=== PATIENT | female | born 1960 | race Caucasian/White ===

== ENCOUNTER 2017-06-13 17:59 | Inpatient (IN) | payer OTHER ==
[~2017-06-13] VITALS: Ht 167.6 cm; Wt 77.1 kg
--- NOTE | ~2017-06-13 | HP ---
History And Physical [place] [address] [place] [place]. [address] NAME: MONAE MG : 60 STATUS : ADM IN [facility]#: [id number] AGE: 56 ADM/REG DATE : 06/13/17 MR#: [id number] REPORT SERV DATE: 06/14/17 DICTATED BY: Calderon CARRIZALES DATE: 06/13/17 REPORT STATUS : Draft TRANSCRIBED BY: MODL DATE: 06/13/17 DATE OF ADMISSION: 06/13/2017 HISTORY OF PRESENT ILLNESS: A 56-year-old female with history of mechanical aortic valve replacement as well as history of kidney pancreas transplant. Transplant was done at [place] in 1997. Valve replacement was done in 2004 in [place]. She is currently followed by supervisor plastics in [place], [place]. She presents to [facility] with two days of fatigue, malaise, and suprapubic abdominal discomfort. WBC count is elevated at 14.2. Urinalysis consistent with infection. CT of the abdomen and pelvis showed a 2.3 x 3.3 x 1.8 fluid collection around the transplanted kidney in the pelvis of uncertain etiology. Her baseline creatinine is 1.7, [facility], the creatinine is 2.27. The patient will now be admitted for further evaluation and treatment. PAST MEDICAL HISTORY: Significant for the above-mentioned kidney and pancreas transplant done in 1997, aortic valve replacement in 2004, hypertension, hyperlipidemia. SOCIAL HISTORY: Good family support. No alcohol, tobacco, or drugs. REVIEW OF SYSTEMS: As per HPI. She denies chest pain or shortness of breath. No syncope or presyncope. No high fever. No shaking chills. No melena, hematochezia, hemoptysis, or hematuria. Remainder of 10-point review of systems negative. FAMILY HISTORY: Positive for heart disease. PHYSICAL EXAMINATION: VITAL SIGNS: Temperature 97.1, heart rate 88, respirations 15, blood pressure 122/54. GENERAL: It is a well-developed, well-nourished, female patient, conversant, in no distress. HEENT: Pupils are equal, round, and reactive to light. Extraocular muscles are intact. Oropharynx is clear. NECK: Without JVD, thyromegaly, or bruit. LUNGS: Clear. HEART: Regular without murmur rub or gallop. ABDOMEN: Soft, positive bowel sounds. Tender in the lower abdomen. No rebound or guarding. EXTREMITIES: No edema. Pulses are +2. SKIN: Without rash or ecchymotic area. JOINTS: Without synovitis, effusion, or deformity. NEURO: Cranial nerves grossly intact. Motor exam is nonfocal. Sensation unremarkable. Gait was not assessed. LABORATORY DATA: White count is 14.2, hemoglobin 11.1, platelets 451. Sodium 141, potassium 4.8, chloride 106, bicarb 26, BUN 31, creatinine 2.27. UA with cloudy urine, 33 white cells, and moderate leukocyte esterase. History And Physical [address] [address] NAME: MONAE MG : 60 STATUS : ADM IN [facility]#: [id number] AGE: 56 ADM/REG DATE : 06/13/17 MR#: [id number] REPORT SERV DATE: 06/14/17 DICTATED BY: Calderon CARRIZALES DATE: 06/13/17 REPORT STATUS : Draft TRANSCRIBED BY: SANTA DATE: 06/13/17 IMPRESSION: A 56-year-old female with acute kidney injury and infection with history of renal/pancreas transplant. PLAN: Admit. Non-monitored bed. Attending Dr. Carrizales consult to Nephrology associates. Electrolyte replacement guidelines. Full code status. Routine vitals. Diet as tolerated. Repeat CBC and renal function panel in a.m. Check ultrasound of the pelvis to evaluate fluid collection around transplanted kidney. Hydrate with saline at 150 an hour. DVT prophylaxis with heparin 5000 units q.8 hours. Reasonable pain and nausea control will be offered. Antimicrobial therapy will be ceftriaxone 1 g q.24 h. With regard to her home medications, we will hold home Avapro given acute kidney injury. Continue other medicines particularly her antirejection medicines as well as her Coumadin. The INR was checked. We will order that to be done on blood in the ER to make sure her INR is therapeutic. JL/SANTA Calderon Carrizales M.D. / [id number] CC: LELA KHAN
--- NOTE | ~2017-06-13 | IDS ---
Interim Discharge Summary [facility] [address] [place]. [address] NAME: MONAE MG : 60 STATUS : ADM IN [facility]#: [id number] AGE: 56 ADM/REG DATE : 06/13/17 MR#: [id number] REPORT SERV DATE: 06/21/17 DICTATED BY: YENI MG DATE: 06/21/17 REPORT STATUS : Draft TRANSCRIBED BY: MODL DATE: 06/21/17 ADMISSION DATE: 06/13/2017 DISCHARGE DATE: INTERIM DISCHARGE SUMMARY WELL PROGRESS NOTE SUBJECTIVE: The patient feels better. No events. OBJECTIVE: VITAL SIGNS: 147/69, 94% on room air, 18 respirations, 79 pulse, 99 temperature, and afebrile. GENERAL: No acute distress. HEENT: PERRLA. No scleral icterus. CARDIOVASCULAR: Regular rate and rhythm. No murmur. The patient does have of systolic aortic murmur consistent with mechanical valve. RESPIRATORY: Decreased breath sounds, bibasilar. No wheezes. No crackles. ABDOMEN: Nontender, nondistended. Positive bowel sounds. NEURO: GCS 15. A and O x4/4. PSYCH: Normal affect and mood. LABORATORY DATA: Today, she has a white count 7.3 from 14,000 back on 06/18/2017, hemoglobin 7.7 from 06/18/2017 from 9.6, platelets are 273,000. Her PTT is therapeutic. INR is still low at 1.3. Sodium 138, 3.6 potassium, 104 chloride, 27 bicarb, 23 BUN. 1.77 creatinine from 1.8 yesterday from 1.89 prior, 1.71 prior to that, for which she has gone from 1.5 to 1.7. Sees product manager financial services in [place]. Albumin 2.0. Micropath original culture IR drainage of the most anterior abscess is enterococcus faecalis and E coli, both of which were sensitive to Cipro versus Levaquin. The Enterococcus was pansensitive and E coli was pansensitive. Subsequent culture on 06/18/2017, , moderate-growth E. coli, abundant-growth Enterococcus; same microorganism sensitivity. There was no growth to date. Repeat chest x-ray yesterday was improved. Vitals today show she is 94% on room air from 97% on 2 L. Some mild alveolar infiltration. Trace pleural effusions possibly. She had transvaginal ultrasound, which had a complex mass adjacent to the posterior uterine fundus possibly representing an abscess. She also had a renal ultrasound. No hydronephrosis or perinephric collection surrounding left iliac fossa renal allograft. She had two separate Intervention Radiology drainage procedures, second of which had showed successful placement of two additional drains, one superior fluid collection, one inferior collection. One in the anterior more collection is unchanged in position. Successful placement of two additional drains as well as original CT of the abdomen and pelvis just showed a small ovoid intermediate attenuation collection via the left pelvic kidney of 2.3 x 3.8 x 1.8 cm. Small bubble of gas, likely abscess. Subtle stranding in adjacent segment of sigmoid colon, stranding in adjacent left adnexa. Probable fibroid uterus. INTERIM DISCHARGE SUMMARY: This is an unfortunate 56-year-old female, who has a history of obesity as well as history of diabetes, hypertension, and hyperlipidemia. She, at one time, had end-stage renal disease, and was fortunate to receive a kidney-pancreas Interim Discharge Summary [address] [address] NAME: CAROL MGSHERLYN JOHN : 60 STATUS : ADM IN PAT#: [id number] AGE: 56 ADM/REG DATE : 06/13/17 MR#: [id number] REPORT SERV DATE: 06/21/17 DICTATED BY: YENI MG DATE: 06/21/17 REPORT STATUS : Draft TRANSCRIBED BY: MODMorgan DATE: 06/21/17 transplant at [place] 1997, for which she is on cyclosporine, mycophenolate mofetil, prednisone 7.5 p.o. daily. She also has a history of mechanical aortic valve replaced in 2016, for which she needs to be bridged with heparin anticoagulation, goal 2 to 3 INR. History of frequent UTIs. Came in with shooting abdominal pain while she was on immunosuppressive medication. Fever 103. Someone prescribed her clindamycin. Had outpatient treatment failure. Came in with a collection of 3.3 x 1.8 cm around the left pelvic transplanted kidney. Further, Intervention Radiology had elucidated actually two other abscesses and all three of which are now being drained. Current output is very minimal. Growths are relatively pansensitive E. coli, Enterococcus. She is on Zosyn. Had Infectious Disease get involved regarding her immunocompromised state. Renal is involved regarding her transplanted kidney. Creatinine is improving, near baseline of 1.5 to 1.7 with 500 mL output questionable. Hopefully, the patient, speaking with Dr. Francis today, likely will need to continue the IV Zosyn at home for duration of therapy per Infectious Disease. The patient does have a titanium fallopian tube insert. The patient should likely have that be removed by an Two Needle Machine Operator as an outpatient. She will need to ensure that her mechanical aortic valve continues with bridge of heparin. Could consider if possible. She does go home on Lovenox, as that cannot be subtherapeutic. See rest of my orders. All questions were answered. Took well over 30 minutes to do. WST/MODL Yeni Mg DO / [id number] CC: DO LELA Lee
--- NOTE | ~2017-06-13 | CN ---
Consultation Report [facility] [address] [place]. [address] NAME: MONAE MG : 60 STATUS : ADM IN PAT#: [id number] AGE: 56 ADM/REG DATE : 06/13/17 MR#: [id number] REPORT SERV DATE: 06/14/17 DICTATED BY: DATE: REPORT STATUS : Draft TRANSCRIBED BY: MODL DATE: 06/14/17 CONSULT DATE OF CONSULTATION: REASON FOR CONSULTATION: Renal transplant, acute kidney injury. HISTORY OF PRESENT ILLNESS: Ms. Mg is a 56-year-old white female with a history of end stage renal disease secondary to diabetes. She underwent kidney pancreas transplant at [place] in 1997. She is followed by in the [facility] with a baseline creatinine of 1.5 to 1.7. She is in the hospital at this time as she developed abdominal pain to the left lower abdomen. She described it as sharp, starting two weeks ago, went to PCP, was given clindamycin. She took it for a week, however she developed sores in her mouth and some stomach upset, so had to stop it, and then in the last 24 to 48 hours prior to presentation developed fevers, chills, fatigue, malaise, and continued suprapubic discomfort and went to the emergency room here at [facility], was found by CT to have questionable abscess in the left pelvic region that did not communicate with intestines. [place] [address]. Her creatinine was elevated at 2.2 given all this, and urine was consistent with findings of UTI, therefore she was admitted for further evaluation, worsening her on day two of admission and her creatinine has gone from 2.27 to 1.52. She denies any dysuria or hematuria recently and states that this is unusual for her to have infection without symptoms that she does have a history of recurrent UTIs. PAST MEDICAL HISTORY: End-stage renal disease secondary to diabetes with kidney-pancreas transplant in 1997 at [place]. She has a mechanical aortic valve replacement done at [facility] in [place]. Hypertension, hyperlipidemia, recurrent UTIs. FAMILY MEDICAL HISTORY: Negative for any end-stage renal disease. ALLERGIES: NO TRUE ALLERGIES, BUT IS INTOLERANT TO MULTIPLE ANTIBIOTICS. SHE HAS MULTIPLE GI SYMPTOMS. MEDICATIONS: She is maintained with her CellCept, prednisone, and cyclosporine. She is on aspirin, Lipitor, currently receiving Rocephin, Protonix, heparin, and Coumadin. She is receiving normal saline at 150 as well. REVIEW OF SYSTEMS: 12-point review of systems obtained and negative with the exception that in the HPI. PHYSICAL EXAMINATION: VITAL SIGNS: Temp of 101.7, blood pressure 165/85, pulse 102, respiratory rate 16, O2 saturation is 92%. GENERAL: This is a pleasant, ill-appearing white female. She is awake, alert, oriented, Consultation Report [place] [address] [place]. [address] NAME: MONAE MG : 60 STATUS : ADM IN [facility]#: [id number] AGE: 56 ADM/REG DATE : 06/13/17 MR#: [id number] REPORT SERV DATE: 06/14/17 DICTATED BY: DATE: REPORT STATUS : Draft TRANSCRIBED BY: MODL DATE: 06/14/17 chilling during my visit. HEENT: Normocephalic, atraumatic. Conjunctivae clear. Sclerae anicteric. Pupils are equal and round. Oral mucosa is dry. NECK: Supple. Carotids are brisk. Neck veins flat. No lymphadenopathy. LUNGS: Her respirations are even and unlabored. Breath sounds clear to auscultation. HEART: Rate is regular. She does have a systolic murmur. No rub or gallop. ABDOMEN: Soft with tenderness to the left pelvic region and suprapubic region. Palpable transplanted kidney in the left lower quadrant. No CVA tenderness. BACK: Within normal limits. EXTREMITIES: No edema, cyanosis, clubbing. SKIN: Warm, dry, and intact. No unusual rash or skin lesions. NEURO: No focal deficits. Mood and affect, pleasant and appropriate. PERTINENT LABS AND X-RAYS: Urine cultures and blood cultures are still pending. Chest x- ray, negative. Sodium 141, potassium 3.9, chloride 108, CO2 of 25, BUN 24, creatinine 1.5, calcium 8.7, phosphorus 2.7, albumin of 2.5. WBCs 69435, H and H 10 and 31, platelets 373,000. CT of the abdomen with collection medial to the left pelvic kidney which is small with a gas bubbles, question of small abscess collection, there is some stranding to the sigmoid colon. No thickening or suggestion of diverticulitis, and the transplant was unremarkable. IMPRESSION: 1. Acute kidney injury secondary to dehydration. Had nausea, vomiting prior to admission. Chronic kidney disease with kidney pancreas transplant in 1997 in [place], baseline creatinine 1.5 to 1.8. 2. Abdominal pain x2 weeks with one week of clindamycin. 3. Question of left pelvic abscess. 4. Recurrent urinary tract infections with current urinary tract infection. 5. Hypertension. 6. Diabetes. 7. History of mechanical aortic valve. PLAN: Creatinine at baseline. We will continue with IV fluids for now. Continue current immune suppression. She is having further evaluation of possible abscess with ultrasound today. She is on antibiotics. We will follow up on cultures. Follow labs and I's and O's with you. We can get in touch with her primary home energy rater, if needed, but at this time her kidney function is stable and we will just follow. ISAURO/SANTA EARL Jang Consultation Report [address] [place]. [address] NAME: MONAE MG : 60 STATUS : ADM IN [facility]#: [id number] AGE: 56 ADM/REG DATE : 06/13/17 MR#: [id number] REPORT SERV DATE: 06/14/17 DICTATED BY: DATE: REPORT STATUS : Draft TRANSCRIBED BY: PRASADL DATE: 06/14/17 / [id number] CC: Crystal Weston
--- NOTE | ~2017-06-13 | CN ---
Consultation Report [facility] [address] [place]. [address] NAME: MONAE MG : 60 STATUS : ADM IN PAT#: [id number] AGE: 56 ADM/REG DATE : 06/13/17 MR#: [id number] REPORT SERV DATE: 06/16/17 DICTATED BY: MEDARDO FRANCIS DATE: 06/16/17 REPORT STATUS : Draft TRANSCRIBED BY: MODL DATE: 06/16/17 INFECTIOUS DISEASE CONSULTATION DATE OF CONSULTATION: 06/16/2017 REASON CONSULTATION: Abscess with sepsis, uncertain etiology. HISTORY OF PRESENT ILLNESS: This is a 56-year-old female with a history of end-stage renal disease, secondary to diabetes, for which she underwent a kidney pancreas transplant at [place] in 1997. She also has a history of mechanical aortic valve replacement in 2005, along with a history of recurrent UTIs. She was in her baseline state of health until two weeks ago when she developed "shooting abdominal pain" in her lower abdomen, more on the left side with associated nausea and then fevers. She then developed some vomiting and mild diarrhea. Her fever got as high as 103. She did not have dysuria or urinary frequency. The patient was seen in an outpatient office and started on clindamycin for possible colitis and took this for seven days, with her last dose being June 11. However, she did not improve at all and for all these reasons was seen in the emergency department on the evening of 06/13/2017 and [place] [address] and fevers as high as 101.7 over the first 24 hours and an increase in her baseline creatinine. Workup in the ER included a CT scan of the abdomen and pelvis without IV contrast. This study is reviewed and was interpreted as showing a small ovoid intermediate attenuation collection medial to the left pelvic transplant kidney measuring 2.3 x 3.3 x 1.8 cm and containing a small bubble of gas suggesting an abscess. There was some subtle stranding to an adjacent segment of sigmoid colon and to the adjacent left adnexa, but no significant thickening of the sigmoid colon. Diverticulosis was seen without evidence of diverticulitis. The patient's urinalysis initially showed moderate leukocyte esterase and 33 white blood cells. After blood urine cultures were obtained, she was started on ceftriaxone. Blood cultures have remained negative. The urine culture has grown greater than 100,000 colonies of E. coli, which is sensitive to ceftriaxone. She has had E. coli UTIs before. Repeat urinalysis however on 06/14/2017 was negative. Despite the antibiotics, the patient has continued to have high fevers up to 102.1 yesterday, 101.5 this morning, and a persistent mild leukocytosis, and no improvement in her pain or nausea. Additional diagnostic studies have included renal ultrasound yesterday showing no hydronephrosis or perinephric collection surrounding the left iliac fossa renal allograft and a pelvic ultrasound yesterday showing a complex mass adjacent to the posterior uterine fundus possibly representing an abscess. A CT-guided drainage of this abscess has been ordered, but was delayed yesterday secondary to INR of 1.8. Today her INR is 1.3 and she is scheduled for drainage procedure. The patient denies other recent infection issues. She specifically denies any skin or soft tissue infections. She does give a history of perianal fissure with episodic bleeding, but no other significant colon abnormalities and did have a colonoscopy two years ago apparently. She denies any history of gynecologic infections. PAST MEDICAL HISTORY: In addition to the problems outlined above includes hypertension, hyperlipidemia. Consultation Report [place] [id number] [facility] [place]. [address] NAME: MONAE MG : 60 STATUS : ADM IN [facility]#: [id number] AGE: 56 ADM/REG DATE : 06/13/17 MR#: [id number] REPORT SERV DATE: 06/16/17 DICTATED BY: MEDARDO FRANCIS DATE: 06/16/17 REPORT STATUS : Draft TRANSCRIBED BY: SANTA DATE: 06/16/17 ALLERGIES: CIPRO CAUSES NAUSEA DOES AMOXICILLIN. PRESENT MEDICATIONS: In addition to ceftriaxone include aspirin, Lipitor, cyclosporine, CellCept, prednisone 7.5 mg daily, Coumadin, Ambien, Protonix, Imdur. SOCIAL HISTORY: She lives with her and is here in the room with her along with her sister. Nonsmoker, nondrinker. No unusual dietary habits. FAMILY HISTORY: Notable for heart disease. REVIEW OF SYSTEMS: As outlined above. In addition, no headache, chest pain, shortness of breath, hematuria, joint issues. The rest of the 10-point review of systems is also negative except as outlined above. PHYSICAL EXAMINATION: VITAL SIGNS: The patient weighs 77 kg. Fevers as mentioned above. Blood pressure 160/80, pulse 103, respiratory rate 16. GENERAL: She is oriented, awake. She looks ill, complaining of nausea, but not toxic. HEENT: Head and neck exam, extraocular movements intact. The oral cavity shows no thrush or ulcers. NECK: Supple. No adenopathy. LUNGS: Clear to auscultation anteriorly. CARDIAC: Shows an irregularly irregular rhythm. Normal S1, S2 with a 2/6 systolic murmur along the left sternal border. ABDOMEN: Bowel sounds are present. The abdomen is not significantly distended. She does have mild tenderness to palpation in the left lower quadrant. EXTREMITIES: Show no significant edema. She has a peripheral IV without phlebitis. SKIN: Without rash. NEUROLOGIC: Grossly nonfocal. LABORATORY STUDIES: White blood cell count yesterday 12.1, hemoglobin 9.9, platelets 368. Creatinine today is 1.37, which appears to be around her baseline. Albumin 2.2. Liver function tests are normal. Microbiology studies are as outlined above. RADIOLOGIC STUDIES: As outlined above. IMPRESSION: Sepsis secondary to what appears to be a pelvic abscess. The etiology of this abscess is not clear. It does not have a classic appearance of a perinephric abscess and the possibility of a GI or gynecologic etiology must be considered. Her persistent fevers may be secondary just to the need for drainage of this, and/or she could have ceftriaxone resistant pathogens involved. PLAN: Consultation Report [address] [place]. [address] NAME: MONAE MG : 60 STATUS : ADM IN [facility]#: [id number] AGE: 56 ADM/REG DATE : 06/13/17 MR#: [id number] REPORT SERV DATE: 06/16/17 DICTATED BY: MEDARDO FRANCIS DATE: 06/16/17 REPORT STATUS : Draft TRANSCRIBED BY: SANTA DATE: 06/16/17 1. We will change antibiotics to Zosyn. 2. Await results of today's CT-guided drainage and will follow closely with you. DYAN/SANTA Medardo Francis M.D. / [id number] CC: DO Robin Lee
--- NOTE | ~2017-06-13 | DS ---
Discharge Summary [address] [id number] [place]. [address] NAME: MONAE MG : 60 STATUS : DIS IN PAT#: [id number] AGE: 56 ADM/REG DATE : 06/13/17 MR#: [id number] REPORT SERV DATE: 06/26/17 DICTATED BY: AMISH CORTEZ DATE: 06/25/17 REPORT STATUS : Draft TRANSCRIBED BY: MODL DATE: 06/25/17 ADMISSION DATE: 06/13/2017 DISCHARGE DATE: 06/25/2017 DISCHARGE DIAGNOSES: 1. Multiple intraabdominal abscesses status post drainage and continuation of IV antibiotics with abscesses cultures positive for E coli and enterococcus. 2. Acute kidney injury on chronic kidney disease on the setting of history of kidney and pancreatic transplant. 3. Chronic immunosuppression. 4. Hypertension. 5. Mechanical aortic valve replacement. Goal INR 1.5-2.5. HOSPITAL COURSE: Please refer to the interim discharge summary dictated by Dr. Mg dated 06/21/2017 for the patient's full hospital course. Of note, my care for this patient began on 06/22/2017 and this discharge summary covers at time. Under my care, starting 06/22/2017, the patient continued on IV Zosyn with Infectious Disease following along and had a PICC line placed in anticipation of discharge home to complete a course of broad-spectrum antibiotics that will be completed on 06/29/2017 per ID's recommendations. Since my arrival, she has remained stable with no sign of systemic infection, lack of leukocytosis, and has been afebrile and is therefore stable for discharge home. From that standpoint, she did have drains placed for her and multiple intraabdominal abscesses. Those have now been removed and the plan will be for her to be discharged today with continuation of Zosyn and weekly labs per Infectious Disease. For her acute kidney injury in the setting of chronic kidney disease with a history of renal and pancreatic transplant, on chronic immunosuppression. Nephrology was consulted during this admission for the patient. She was continued on her chronic immunosuppression. She was diuresed during this admission during my time here per Nephrology and has had a slight increase in her creatinine from 1.95 to now 2.04 on the date of discharge. The patient feels well and Nephrology feels that the patient is stable for discharge home from a Nephrology standpoint. She is to call her primary senior designer in [place] on discharge and set up followup within a week or so for further management. The patient was found to be persistently hypertensive during her admission and therefore was started on several new medications. She will be discharged home with 30 mg of Imdur daily as well as carvedilol 12.5 b.i.d. as well as additional 5 mg of amlodipine on the day of discharge given persistent systolic blood pressures from the 160s, sometimes up to the 200s. Again, she will follow up with her primary senior designer and her blood pressure regimen can be tailored further at that time. For her mechanical aortic valve replacement, her goal INR is 1.5-2.5 based on the valve that she has. Pharmacy followed along during her admission and made recommendations regarding her anticoagulation. On the day of discharge, her INR is therapeutic and therefore she is ready for discharge home. Pharmacy has recommended that we continue with her home regimen Discharge Summary [address] [place]. [address] NAME: MONAE MG : 60 STATUS : DIS IN PAT#: [id number] AGE: 56 ADM/REG DATE : 06/13/17 MR#: [id number] REPORT SERV DATE: 06/26/17 DICTATED BY: AMISH CORTEZ DATE: 06/25/17 REPORT STATUS : Draft TRANSCRIBED BY: SANTA DATE: 06/25/17 and she will follow up with an INR check in the coming week. Of note, regarding the patient's multiple intraabdominal infections, the patient does have a history of titanium fallopian tube device, and given her multiple infections in the abdomen, it is reasonable to consider removal of this as it is a potential nidus for infection. Therefore, she has followup scheduled with her knife setter in three or four weeks following discharge for consideration of removal of this titanium tube. DISCHARGE MEDICATIONS: 81 mg of p.o. aspirin daily; 20 mg of Lipitor nightly; 12.5 mg of carvedilol p.o. twice per day; 50 mg of cyclosporine p.o. at bedtime; 100 mg of cyclosporine p.o. every morning; 30 mg of Imdur p.o. daily; 500 mg of CellCept p.o. twice per day; 20 mg of omeprazole p.o. twice per day; Zosyn 3.375 extended infusion q.8 hours through 06/29/2017; warfarin 5 mg Mondays and Fridays with 7.5 mg on Wednesday, Wednesday, Wednesday, , and Wednesday; Ambien 2.5 mg p.o. at bedtime; prednisone 7.5 mg p.o. daily; Tylenol 500 mg p.o. daily p.r.n. for fever; lidocaine cream topically for back pain; and 5 mg amlodipine p.o. daily. FOLLOWUP: As mentioned prior, the patient will call and schedule follow up with Nephrology within the next week. At which time, her blood pressure regimen can be reassessed as well as her renal function. Per Nephrology, she is stable for discharge home with her creatinine of 2.04. As above, she will continue with her IV antibiotics through 06/29/2017. Again, she has followup scheduled with Gynecology in three to four weeks for consideration of fallopian titanium tube removal given the possibility that this could be a nidus for infection given her multiple intraabdominal infections. Approximately 45 minutes were spent coordinating the discharge of this patient. DAYDAY/SANTA Amish Cortez MD / [id number] CC: MD ERIN Mcdermott PAUL E
[2017-06-13 20:17] LABS: BASOPHILS 0.1 %; BASOPHILS ABSOLUTE 0.02 10/3/uL (0.0-0.16); EOSINOPHILS 0.1 %; EOSINOPHILS ABSOLUTE 0.01 10/3/uL (0.0-0.53); HEMATOCRIT 35.7 % (36.0-48.0); HEMOGLOBIN 11.1 g/dL (12.0-16.0); IMMATURE GRANULOCYTES 0.7 %; LYMPHOCYTES 3.7 %; LYMPHOCYTES ABSOLUTE 0.53 10/3/uL (0.67-4.30); MEAN CORPUS HGB CONC 31.1 g/dL (32.0-36.0); MEAN CORPUSCULAR HEMOGLOB 27.4 pg (26.0-34.0); MEAN CORPUSCULAR VOLUME 88.1 fL (80-100); MEAN PLATELET VOLUME 8.4 fL (9.2-13.0); MONOCYTES 7.3 %; MONOCYTES ABSOLUTE 1.03 10/3/uL (0.21-1.20); NEUTROPHILS 88.1 %; PLATELET COUNT 451 10/3/uL (150-400); RBC DISTRIBUTION WIDTH 13.7 % (12.0-16.0); RED CELL COUNT 4.05 10/6/uL (4.0-5.6); WHITE BLOOD CELLS 14.2 10/3/uL (4.5-10.5)
[2017-06-13 20:19] LABS: ASCORBIC ACID (UR NOT ORDER) NEG (NEG); BILIRUBIN, URINE SMALL (NEG); ER URINALYSIS TAT 0 Hrs 14 Mins; KETONE, URINE NEGATIVE (NEG); LEUKOCYTE ESTERASE(NOT OR MOD (NEG); NITRITE (URINE) NEG (NEG); WBC (NOT ORDERED) (RFLEX) 33 (0-5)
[2017-06-13 20:20] LABS: MANUAL DIFF NO %
[2017-06-13 20:33] LABS: A/G RATIO 0.7 (0.7-1.9); ALKALINE PHOSPHATASE 76 U/L (45-117); BUN (BLOOD UREA NITROGEN) 31 MG/DL (6-23); CALCIUM, SERUM 9.1 MG/DL (8.5-10.4); CHLORIDE, SERUM 104 MMOL/L (96-112); CO2 (CARBON DIOXIDE) 26 MMOL/L (24-34); CREATININE 2.27 MG/DL (0.55-1.02); GFR AFRICAN AMERICAN 27 ML/MIN (>=60); GFR NON AFRICAN AMERICAN 23 ML/MIN (>=60); GLOBULIN 4.1 G/DL (2.5-4.1); GLUCOSE, SERUM 114 MG/DL (60-99); POTASSIUM, SERUM 4.8 MMOL/L (3.5-5.3); SGOT(AST) 12 U/L (5-40); SGPT(ALT) 13 U/L (5-65); SODIUM, SERUM 141 MMOL/L (135-148); TOTAL PROTEIN 7.1 G/DL (6.0-8.5)
[2017-06-13] MEDS ORDERED: CYCLOSPORINE25 MG PO (23:10)
[2017-06-13] MEDS ORDERED: CYCLOSPORINE100 MG PO (23:11)
[2017-06-13] MEDS ORDERED: PRILO PO (23:12)
[2017-06-13] MEDS ORDERED: LIPITOR20 PO (23:13)
[2017-06-13] MEDS ORDERED: P5 PO (23:14)
[2017-06-13] MEDS ORDERED: FOSAMAX35 MG PO (23:14)
[2017-06-13] MEDS ORDERED: CLEOCIN300 MG PO (23:14)
[2017-06-13] MEDS ORDERED: AMB10 PO (23:15)
[2017-06-13] MEDS ORDERED: AVAPRO75 PO (23:15)
[2017-06-13] MEDS ORDERED: C5 PO ×2 (23:16→23:17)
[2017-06-13] MEDS ORDERED: CELLCEPT5 PO (23:16)
[2017-06-13] MEDS ORDERED: ASAB PO (23:17)
[2017-06-13] MEDS ORDERED: ACET500CAP PO (23:18)
[2017-06-13] MEDS ORDERED: LIDOCAINE TOP (23:20)
[2017-06-14 00:20] LABS: INTERNATIONAL NORMAL RATI 1.5 UNITS (-); PARTIAL THROMBO TIME 26.9 SEC (22.5-37.2); PROTIME (NOT ORD) 17.5 SEC (12.0-14.5)
[2017-06-14 07:18] LABS: MEAN CORPUS HGB CONC 31.9 g/dL (32.0-36.0); MEAN CORPUSCULAR HEMOGLOB 27.9 pg (26.0-34.0); MEAN CORPUSCULAR VOLUME 87.4 fL (80-100); MEAN PLATELET VOLUME 8.1 fL (9.2-13.0); PLATELET COUNT 373 10/3/uL (150-400); RBC DISTRIBUTION WIDTH 13.7 % (12.0-16.0); RED CELL COUNT 3.58 10/6/uL (4.0-5.6); WHITE BLOOD CELLS 11.4 10/3/uL (4.5-10.5)
[2017-06-14 07:20] LABS: HEMATOCRIT 31.3 % (36.0-48.0)
[2017-06-14 07:25] LABS: INTERNATIONAL NORMAL RATI 1.6 UNITS (-); PARTIAL THROMBO TIME 31.8 SEC (22.5-37.2); PROTIME (NOT ORD) 18.8 SEC (12.0-14.5)
[2017-06-14 07:31] LABS: ALBUMIN 2.5 G/DL (3.5-5.0); CALCIUM, SERUM 8.7 MG/DL (8.5-10.4); CHLORIDE, SERUM 108 MMOL/L (96-112); CO2 (CARBON DIOXIDE) 25 MMOL/L (24-34); PHOSPHORUS, SERUM 2.7 MG/DL (2.5-4.5); POTASSIUM, SERUM 3.9 MMOL/L (3.5-5.3); SODIUM, SERUM 141 MMOL/L (135-148)
[2017-06-14 07:32] LABS: BUN (BLOOD UREA NITROGEN) 24 MG/DL (6-23); CREATININE 1.52 MG/DL (0.55-1.02); GFR AFRICAN AMERICAN 44 ML/MIN (>=60); GFR NON AFRICAN AMERICAN 38 ML/MIN (>=60); GLUCOSE, SERUM 88 MG/DL (60-99)
[2017-06-14 11:37] LABS: ALBUMIN 2.4 G/DL (3.5-5.0); BUN (BLOOD UREA NITROGEN) 23 MG/DL (6-23); CALCIUM, SERUM 8.3 MG/DL (8.5-10.4); CHLORIDE, SERUM 111 MMOL/L (96-112); CO2 (CARBON DIOXIDE) 23 MMOL/L (24-34); CREATININE 1.58 MG/DL (0.55-1.02); GFR AFRICAN AMERICAN 42 ML/MIN (>=60); GFR NON AFRICAN AMERICAN 36 ML/MIN (>=60); GLUCOSE, SERUM 99 MG/DL (60-99); PHOSPHORUS, SERUM 2.5 MG/DL (2.5-4.5); POTASSIUM, SERUM 3.9 MMOL/L (3.5-5.3); SODIUM, SERUM 141 MMOL/L (135-148)
[2017-06-14 22:37] LABS: ASCORBIC ACID (UR NOT ORDER) NEG (NEG); BILIRUBIN, URINE NEGATIVE (NEG); KETONE, URINE NEGATIVE (NEG); LEUKOCYTE ESTERASE(NOT OR NEG (NEG); WBC (NOT ORDERED) (RFLEX) 5 (0-5)
[2017-06-15 05:28] LABS: BASOPHILS 0.1 %; BASOPHILS ABSOLUTE 0.01 10/3/uL (0.0-0.16); EOSINOPHILS 0.3 %; EOSINOPHILS ABSOLUTE 0.04 10/3/uL (0.0-0.53); HEMATOCRIT 31.5 % (36.0-48.0); HEMOGLOBIN 9.9 g/dL (12.0-16.0); IMMATURE GRANULOCYTES 0.7 %; IMMATURE GRANULOCYTES ABSOLUTE 0.09 10/3/uL (0.0-0.11); LYMPHOCYTES 9.2 %; LYMPHOCYTES ABSOLUTE 1.11 10/3/uL (0.67-4.30); MEAN CORPUS HGB CONC 31.4 g/dL (32.0-36.0); MEAN CORPUSCULAR HEMOGLOB 27.5 pg (26.0-34.0); MEAN CORPUSCULAR VOLUME 87.5 fL (80-100); MEAN PLATELET VOLUME 8.1 fL (9.2-13.0); MONOCYTES 8.3 %; NEUTROPHILS 81.4 %; NEUTROPHILS ABSOLUTE 9.84 10/3/uL (2.02-8.40); PLATELET COUNT 368 10/3/uL (150-400); RBC DISTRIBUTION WIDTH 14.1 % (12.0-16.0); WHITE BLOOD CELLS 12.1 10/3/uL (4.5-10.5)
[2017-06-15 05:29] LABS: MANUAL DIFF NO %
[2017-06-15 05:33] LABS: INTERNATIONAL NORMAL RATI 1.8 UNITS (-); PARTIAL THROMBO TIME 36.9 SEC (22.5-37.2); PROTIME (NOT ORD) 20.6 SEC (12.0-14.5)
[2017-06-15 05:39] LABS: ALBUMIN 2.5 G/DL (3.5-5.0); BUN (BLOOD UREA NITROGEN) 21 MG/DL (6-23); CALCIUM, SERUM 8.7 MG/DL (8.5-10.4); CHLORIDE, SERUM 109 MMOL/L (96-112); CO2 (CARBON DIOXIDE) 24 MMOL/L (24-34); CREATININE 1.45 MG/DL (0.55-1.02); GFR AFRICAN AMERICAN 47 ML/MIN (>=60); GFR NON AFRICAN AMERICAN 40 ML/MIN (>=60); GLUCOSE, SERUM 98 MG/DL (60-99); PHOSPHORUS, SERUM 2.2 MG/DL (2.5-4.5); POTASSIUM, SERUM 4.2 MMOL/L (3.5-5.3); SODIUM, SERUM 140 MMOL/L (135-148)
[2017-06-15 07:47] LABS: PFA (COL/EPI) > 300 SEC (72-180)
[2017-06-15 07:48] LABS: PFA (COL/ADP) 91 SEC (51-105)
[2017-06-16 05:28] LABS: ALBUMIN 2.2 G/DL (3.5-5.0); BUN (BLOOD UREA NITROGEN) 18 MG/DL (6-23); CALCIUM, SERUM 8.3 MG/DL (8.5-10.4); CHLORIDE, SERUM 110 MMOL/L (96-112); CO2 (CARBON DIOXIDE) 23 MMOL/L (24-34); CREATININE 1.37 MG/DL (0.55-1.02); GFR AFRICAN AMERICAN 50 ML/MIN (>=60); GFR NON AFRICAN AMERICAN 43 ML/MIN (>=60); GLUCOSE, SERUM 104 MG/DL (60-99); PHOSPHORUS, SERUM 2.6 MG/DL (2.5-4.5); POTASSIUM, SERUM 4.1 MMOL/L (3.5-5.3); SODIUM, SERUM 141 MMOL/L (135-148)
[2017-06-16 07:04] LABS: INTERNATIONAL NORMAL RATI 1.3 UNITS (-)
[2017-06-16 07:06] LABS: PROTIME (NOT ORD) 16.4 SEC (12.0-14.5)
[2017-06-17 05:47] LABS: BASOPHILS 0.1 %; BASOPHILS ABSOLUTE 0.01 10/3/uL (0.0-0.16); EOSINOPHILS 0.5 %; EOSINOPHILS ABSOLUTE 0.06 10/3/uL (0.0-0.53); HEMATOCRIT 28.5 % (36.0-48.0); HEMOGLOBIN 9.1 g/dL (12.0-16.0); IMMATURE GRANULOCYTES 0.5 %; IMMATURE GRANULOCYTES ABSOLUTE 0.07 10/3/uL (0.0-0.11); LYMPHOCYTES 7.4 %; LYMPHOCYTES ABSOLUTE 0.96 10/3/uL (0.67-4.30); MEAN CORPUS HGB CONC 31.9 g/dL (32.0-36.0); MEAN CORPUSCULAR HEMOGLOB 27.9 pg (26.0-34.0); MEAN CORPUSCULAR VOLUME 87.4 fL (80-100); MEAN PLATELET VOLUME 8.1 fL (9.2-13.0); MONOCYTES 9.2 %; NEUTROPHILS 82.3 %; PLATELET COUNT 298 10/3/uL (150-400); RBC DISTRIBUTION WIDTH 14.5 % (12.0-16.0); RED CELL COUNT 3.26 10/6/uL (4.0-5.6)
[2017-06-17 05:48] LABS: MANUAL DIFF NO %
[2017-06-17 05:55] LABS: INTERNATIONAL NORMAL RATI 1.3 UNITS (-); PROTIME (NOT ORD) 15.7 SEC (12.0-14.5)
[2017-06-17 05:56] LABS: PARTIAL THROMBO TIME 76.2 SEC (22.5-37.2)
[2017-06-17 06:02] LABS: ALBUMIN 2.3 G/DL (3.5-5.0); BUN (BLOOD UREA NITROGEN) 16 MG/DL (6-23); CALCIUM, SERUM 8.2 MG/DL (8.5-10.4); CHLORIDE, SERUM 109 MMOL/L (96-112); CO2 (CARBON DIOXIDE) 24 MMOL/L (24-34); CREATININE 1.53 MG/DL (0.55-1.02); GFR AFRICAN AMERICAN 44 ML/MIN (>=60); GFR NON AFRICAN AMERICAN 38 ML/MIN (>=60); GLUCOSE, SERUM 111 MG/DL (60-99); SODIUM, SERUM 139 MMOL/L (135-148)
[2017-06-18 06:56] LABS: BASOPHILS 0.1 %; BASOPHILS ABSOLUTE 0.01 10/3/uL (0.0-0.16); EOSINOPHILS 0.8 %; EOSINOPHILS ABSOLUTE 0.08 10/3/uL (0.0-0.53); HEMATOCRIT 26.3 % (36.0-48.0); HEMOGLOBIN 8.5 g/dL (12.0-16.0); IMMATURE GRANULOCYTES 0.2 %; IMMATURE GRANULOCYTES ABSOLUTE 0.02 10/3/uL (0.0-0.11); LYMPHOCYTES 9.4 %; LYMPHOCYTES ABSOLUTE 0.94 10/3/uL (0.67-4.30); MEAN CORPUS HGB CONC 32.3 g/dL (32.0-36.0); MEAN CORPUSCULAR HEMOGLOB 27.9 pg (26.0-34.0); MEAN CORPUSCULAR VOLUME 86.2 fL (80-100); MEAN PLATELET VOLUME 8.1 fL (9.2-13.0); MONOCYTES 8.2 %; MONOCYTES ABSOLUTE 0.82 10/3/uL (0.21-1.20); NEUTROPHILS 81.3 %; NEUTROPHILS ABSOLUTE 8.17 10/3/uL (2.02-8.40); PLATELET COUNT 297 10/3/uL (150-400); RBC DISTRIBUTION WIDTH 14.3 % (12.0-16.0); RED CELL COUNT 3.05 10/6/uL (4.0-5.6)
[2017-06-18 07:01] LABS: MANUAL DIFF NO %
[2017-06-18 07:03] LABS: INTERNATIONAL NORMAL RATI 1.2 UNITS (-); PARTIAL THROMBO TIME 34.8 SEC (22.5-37.2); PROTIME (NOT ORD) 14.7 SEC (12.0-14.5)
[2017-06-18 07:10] LABS: ALBUMIN 2.2 G/DL (3.5-5.0); BUN (BLOOD UREA NITROGEN) 19 MG/DL (6-23); CALCIUM, SERUM 8.6 MG/DL (8.5-10.4); CHLORIDE, SERUM 107 MMOL/L (96-112); CO2 (CARBON DIOXIDE) 25 MMOL/L (24-34); CREATININE 1.71 MG/DL (0.55-1.02); GFR AFRICAN AMERICAN 38 ML/MIN (>=60); GFR NON AFRICAN AMERICAN 33 ML/MIN (>=60); GLUCOSE, SERUM 100 MG/DL (60-99); POTASSIUM, SERUM 3.6 MMOL/L (3.5-5.3); SODIUM, SERUM 138 MMOL/L (135-148)
[2017-06-18 07:11] LABS: PHOSPHORUS, SERUM 2.8 MG/DL (2.5-4.5)
[2017-06-18 07:28] LABS: PROCALCITONIN 0.45 ng/mL (<0.5)
[2017-06-18 07:31] LABS: PFA (COL/EPI) 167 SEC (72-180)
[2017-06-18 20:47] LABS: BASOPHILS 0.1 %; BASOPHILS ABSOLUTE 0.02 10/3/uL (0.0-0.16); EOSINOPHILS 0.9 %; EOSINOPHILS ABSOLUTE 0.13 10/3/uL (0.0-0.53); HEMOGLOBIN 9.6 g/dL (12.0-16.0); IMMATURE GRANULOCYTES 0.5 %; IMMATURE GRANULOCYTES ABSOLUTE 0.07 10/3/uL (0.0-0.11); LYMPHOCYTES 6.1 %; LYMPHOCYTES ABSOLUTE 0.85 10/3/uL (0.67-4.30); MEAN CORPUS HGB CONC 31.7 g/dL (32.0-36.0); MEAN CORPUSCULAR HEMOGLOB 27.7 pg (26.0-34.0); MEAN CORPUSCULAR VOLUME 87.6 fL (80-100); MEAN PLATELET VOLUME 8.6 fL (9.2-13.0); MONOCYTES 6.3 %; MONOCYTES ABSOLUTE 0.88 10/3/uL (0.21-1.20); NEUTROPHILS 86.1 %; NEUTROPHILS ABSOLUTE 12.03 10/3/uL (2.02-8.40); PLATELET COUNT 327 10/3/uL (150-400); RBC DISTRIBUTION WIDTH 14.4 % (12.0-16.0); RED CELL COUNT 3.46 10/6/uL (4.0-5.6)
[2017-06-18 20:54] LABS: HEMATOCRIT 30.3 % (36.0-48.0); MANUAL DIFF NO %
[2017-06-19 06:40] LABS: INTERNATIONAL NORMAL RATI 1.2 UNITS (-); PROTIME (NOT ORD) 15.1 SEC (12.0-14.5)
[2017-06-19 06:41] LABS: PARTIAL THROMBO TIME 47.4 SEC (22.5-37.2)
[2017-06-19 06:46] LABS: ALBUMIN 2.2 G/DL (3.5-5.0); BUN (BLOOD UREA NITROGEN) 18 MG/DL (6-23); CALCIUM, SERUM 8.4 MG/DL (8.5-10.4); CHLORIDE, SERUM 105 MMOL/L (96-112); CO2 (CARBON DIOXIDE) 24 MMOL/L (24-34); CREATININE 1.89 MG/DL (0.55-1.02); GFR AFRICAN AMERICAN 34 ML/MIN (>=60); GFR NON AFRICAN AMERICAN 29 ML/MIN (>=60); GLUCOSE, SERUM 88 MG/DL (60-99); PHOSPHORUS, SERUM 4.5 MG/DL (2.5-4.5); POTASSIUM, SERUM 3.8 MMOL/L (3.5-5.3); SODIUM, SERUM 141 MMOL/L (135-148)
[2017-06-19 19:53] LABS: INTERNATIONAL NORMAL RATI 1.2 UNITS (-); PARTIAL THROMBO TIME 43.2 SEC (22.5-37.2); PROTIME (NOT ORD) 14.8 SEC (12.0-14.5)
[2017-06-20 04:10] LABS: BASOPHILS 0.1 %; BASOPHILS ABSOLUTE 0.01 10/3/uL (0.0-0.16); EOSINOPHILS 1.1 %; IMMATURE GRANULOCYTES 0.3 %; IMMATURE GRANULOCYTES ABSOLUTE 0.03 10/3/uL (0.0-0.11); LYMPHOCYTES 10.5 %; LYMPHOCYTES ABSOLUTE 0.97 10/3/uL (0.67-4.30); MEAN CORPUS HGB CONC 31.5 g/dL (32.0-36.0); MEAN CORPUSCULAR HEMOGLOB 27.3 pg (26.0-34.0); MEAN CORPUSCULAR VOLUME 86.7 fL (80-100); MEAN PLATELET VOLUME 8.4 fL (9.2-13.0); MONOCYTES 7.1 %; MONOCYTES ABSOLUTE 0.66 10/3/uL (0.21-1.20); NEUTROPHILS 80.9 %; NEUTROPHILS ABSOLUTE 7.49 10/3/uL (2.02-8.40); PLATELET COUNT 291 10/3/uL (150-400); RBC DISTRIBUTION WIDTH 14.3 % (12.0-16.0); RED CELL COUNT 2.93 10/6/uL (4.0-5.6); WHITE BLOOD CELLS 9.3 10/3/uL (4.5-10.5)
[2017-06-20 04:12] LABS: HEMATOCRIT 25.4 % (36.0-48.0); MANUAL DIFF NO %
[2017-06-20 04:16] LABS: INTERNATIONAL NORMAL RATI 1.2 UNITS (-)
[2017-06-20 04:17] LABS: PARTIAL THROMBO TIME 81.5 SEC (22.5-37.2)
[2017-06-20 04:25] LABS: ALBUMIN 2.1 G/DL (3.5-5.0); BUN (BLOOD UREA NITROGEN) 20 MG/DL (6-23); CALCIUM, SERUM 8.3 MG/DL (8.5-10.4); CHLORIDE, SERUM 103 MMOL/L (96-112); CO2 (CARBON DIOXIDE) 27 MMOL/L (24-34); GFR AFRICAN AMERICAN 36 ML/MIN (>=60); GFR NON AFRICAN AMERICAN 31 ML/MIN (>=60); POTASSIUM, SERUM 3.6 MMOL/L (3.5-5.3); SODIUM, SERUM 137 MMOL/L (135-148)
[2017-06-20 04:26] LABS: GLUCOSE, SERUM 111 MG/DL (60-99); PHOSPHORUS, SERUM 3.3 MG/DL (2.5-4.5)
[2017-06-21 07:06] LABS: BASOPHILS 0.3 %; BASOPHILS ABSOLUTE 0.02 10/3/uL (0.0-0.16); EOSINOPHILS 1.5 %; EOSINOPHILS ABSOLUTE 0.11 10/3/uL (0.0-0.53); HEMATOCRIT 24.3 % (36.0-48.0); HEMOGLOBIN 7.7 g/dL (12.0-16.0); IMMATURE GRANULOCYTES 1.2 %; IMMATURE GRANULOCYTES ABSOLUTE 0.09 10/3/uL (0.0-0.11); LYMPHOCYTES ABSOLUTE 1.17 10/3/uL (0.67-4.30); MEAN CORPUS HGB CONC 31.7 g/dL (32.0-36.0); MEAN CORPUSCULAR HEMOGLOB 27.8 pg (26.0-34.0); MEAN CORPUSCULAR VOLUME 87.7 fL (80-100); MEAN PLATELET VOLUME 8.3 fL (9.2-13.0); MONOCYTES 8.2 %; NEUTROPHILS 72.8 %; NEUTROPHILS ABSOLUTE 5.33 10/3/uL (2.02-8.40); PLATELET COUNT 273 10/3/uL (150-400); RBC DISTRIBUTION WIDTH 13.9 % (12.0-16.0); RED CELL COUNT 2.77 10/6/uL (4.0-5.6); WHITE BLOOD CELLS 7.3 10/3/uL (4.5-10.5)
[2017-06-21 07:09] LABS: MANUAL DIFF NO %
[2017-06-21 07:12] LABS: INTERNATIONAL NORMAL RATI 1.3 UNITS (-); PROTIME (NOT ORD) 15.6 SEC (12.0-14.5)
[2017-06-21 07:20] LABS: BUN (BLOOD UREA NITROGEN) 23 MG/DL (6-23); CALCIUM, SERUM 8.5 MG/DL (8.5-10.4); CHLORIDE, SERUM 104 MMOL/L (96-112); CO2 (CARBON DIOXIDE) 27 MMOL/L (24-34); CREATININE 1.77 MG/DL (0.55-1.02); GFR AFRICAN AMERICAN 37 ML/MIN (>=60); GFR NON AFRICAN AMERICAN 32 ML/MIN (>=60); GLUCOSE, SERUM 101 MG/DL (60-99); PHOSPHORUS, SERUM 3.8 MG/DL (2.5-4.5); POTASSIUM, SERUM 3.6 MMOL/L (3.5-5.3); SODIUM, SERUM 138 MMOL/L (135-148)
[2017-06-22 02:24] LABS: BASOPHILS 0.1 %; BASOPHILS ABSOLUTE 0.01 10/3/uL (0.0-0.16); EOSINOPHILS 0.8 %; EOSINOPHILS ABSOLUTE 0.08 10/3/uL (0.0-0.53); HEMOGLOBIN 8.3 g/dL (12.0-16.0); IMMATURE GRANULOCYTES 1.1 %; LYMPHOCYTES 12.4 %; LYMPHOCYTES ABSOLUTE 1.17 10/3/uL (0.67-4.30); MEAN CORPUS HGB CONC 31.9 g/dL (32.0-36.0); MEAN CORPUSCULAR HEMOGLOB 27.8 pg (26.0-34.0); MEAN PLATELET VOLUME 8.6 fL (9.2-13.0); MONOCYTES 7.9 %; MONOCYTES ABSOLUTE 0.75 10/3/uL (0.21-1.20); NEUTROPHILS 77.7 %; NEUTROPHILS ABSOLUTE 7.36 10/3/uL (2.02-8.40); PLATELET COUNT 341 10/3/uL (150-400); RBC DISTRIBUTION WIDTH 14.1 % (12.0-16.0); RED CELL COUNT 2.99 10/6/uL (4.0-5.6); WHITE BLOOD CELLS 9.5 10/3/uL (4.5-10.5)
[2017-06-22 02:31] LABS: MANUAL DIFF NO %
[2017-06-22 02:36] LABS: ALBUMIN 2.3 G/DL (3.5-5.0); CALCIUM, SERUM 8.7 MG/DL (8.5-10.4); CHLORIDE, SERUM 103 MMOL/L (96-112); CO2 (CARBON DIOXIDE) 29 MMOL/L (24-34); CREATININE 1.81 MG/DL (0.55-1.02); GFR AFRICAN AMERICAN 36 ML/MIN (>=60); GFR NON AFRICAN AMERICAN 31 ML/MIN (>=60); GLUCOSE, SERUM 97 MG/DL (60-99); POTASSIUM, SERUM 3.8 MMOL/L (3.5-5.3); SODIUM, SERUM 141 MMOL/L (135-148)
[2017-06-22 02:37] LABS: INTERNATIONAL NORMAL RATI 1.4 UNITS (-); PROTIME (NOT ORD) 16.9 SEC (12.0-14.5)
[2017-06-22 02:40] LABS: BUN (BLOOD UREA NITROGEN) 27 MG/DL (6-23)
[2017-06-22 02:53] LABS: PARTIAL THROMBO TIME 114.9 SEC (22.5-37.2)
[2017-06-22 10:00] LABS: INTERNATIONAL NORMAL RATI 1.4 UNITS (-); PROTIME (NOT ORD) 17.3 SEC (12.0-14.5)
[2017-06-22 17:24] LABS: INTERNATIONAL NORMAL RATI 1.5 UNITS (-); PROTIME (NOT ORD) 17.6 SEC (12.0-14.5)
[2017-06-22 17:25] LABS: PARTIAL THROMBO TIME 116.2 SEC (22.5-37.2)
[2017-06-23 01:17] LABS: INTERNATIONAL NORMAL RATI 1.4 UNITS (-); PARTIAL THROMBO TIME 46.9 SEC (22.5-37.2); PROTIME (NOT ORD) 17.2 SEC (12.0-14.5)
[2017-06-23 05:07] LABS: BASOPHILS 0.1 %; BASOPHILS ABSOLUTE 0.01 10/3/uL (0.0-0.16); EOSINOPHILS 0.2 %; EOSINOPHILS ABSOLUTE 0.02 10/3/uL (0.0-0.53); HEMATOCRIT 27.4 % (36.0-48.0); HEMOGLOBIN 8.7 g/dL (12.0-16.0); IMMATURE GRANULOCYTES 1.1 %; IMMATURE GRANULOCYTES ABSOLUTE 0.11 10/3/uL (0.0-0.11); LYMPHOCYTES 7.5 %; LYMPHOCYTES ABSOLUTE 0.78 10/3/uL (0.67-4.30); MANUAL DIFF NO %; MEAN CORPUS HGB CONC 31.8 g/dL (32.0-36.0); MEAN CORPUSCULAR HEMOGLOB 27.5 pg (26.0-34.0); MEAN CORPUSCULAR VOLUME 86.7 fL (80-100); MEAN PLATELET VOLUME 8.6 fL (9.2-13.0); MONOCYTES 4.6 %; MONOCYTES ABSOLUTE 0.48 10/3/uL (0.21-1.20); NEUTROPHILS 86.5 %; NEUTROPHILS ABSOLUTE 8.96 10/3/uL (2.02-8.40); PLATELET COUNT 370 10/3/uL (150-400); RBC DISTRIBUTION WIDTH 14.1 % (12.0-16.0); RED CELL COUNT 3.16 10/6/uL (4.0-5.6); WHITE BLOOD CELLS 10.4 10/3/uL (4.5-10.5)
[2017-06-23 05:17] LABS: ALBUMIN 2.5 G/DL (3.5-5.0); BUN (BLOOD UREA NITROGEN) 26 MG/DL (6-23); CALCIUM, SERUM 9.1 MG/DL (8.5-10.4); CHLORIDE, SERUM 102 MMOL/L (96-112); CO2 (CARBON DIOXIDE) 27 MMOL/L (24-34); CREATININE 1.95 MG/DL (0.55-1.02); GFR AFRICAN AMERICAN 33 ML/MIN (>=60); GFR NON AFRICAN AMERICAN 28 ML/MIN (>=60); POTASSIUM, SERUM 3.8 MMOL/L (3.5-5.3); SODIUM, SERUM 139 MMOL/L (135-148)
[2017-06-23 05:18] LABS: GLUCOSE, SERUM 130 MG/DL (60-99); INTERNATIONAL NORMAL RATI 1.8 UNITS (-); PHOSPHORUS, SERUM 4.2 MG/DL (2.5-4.5)
[2017-06-23 05:19] LABS: PROTIME (NOT ORD) 20.7 SEC (12.0-14.5)
[2017-06-24 04:38] LABS: BASOPHILS 0.2 %; BASOPHILS ABSOLUTE 0.02 10/3/uL (0.0-0.16); EOSINOPHILS 0.7 %; EOSINOPHILS ABSOLUTE 0.07 10/3/uL (0.0-0.53); HEMOGLOBIN 7.9 g/dL (12.0-16.0); IMMATURE GRANULOCYTES 0.8 %; IMMATURE GRANULOCYTES ABSOLUTE 0.08 10/3/uL (0.0-0.11); LYMPHOCYTES ABSOLUTE 1.23 10/3/uL (0.67-4.30); MEAN CORPUS HGB CONC 31.6 g/dL (32.0-36.0); MEAN CORPUSCULAR HEMOGLOB 27.8 pg (26.0-34.0); MEAN PLATELET VOLUME 8.5 fL (9.2-13.0); MONOCYTES 7.9 %; MONOCYTES ABSOLUTE 0.75 10/3/uL (0.21-1.20); NEUTROPHILS 77.4 %; NEUTROPHILS ABSOLUTE 7.33 10/3/uL (2.02-8.40); PLATELET COUNT 313 10/3/uL (150-400); RBC DISTRIBUTION WIDTH 14.5 % (12.0-16.0); RED CELL COUNT 2.84 10/6/uL (4.0-5.6); WHITE BLOOD CELLS 9.5 10/3/uL (4.5-10.5)
[2017-06-24 04:39] LABS: MANUAL DIFF NO %
[2017-06-24 04:45] LABS: INTERNATIONAL NORMAL RATI 1.8 UNITS (-); PROTIME (NOT ORD) 20.4 SEC (12.0-14.5)
[2017-06-24 04:54] LABS: BUN (BLOOD UREA NITROGEN) 29 MG/DL (6-23); CALCIUM, SERUM 9.1 MG/DL (8.5-10.4); CHLORIDE, SERUM 105 MMOL/L (96-112); CO2 (CARBON DIOXIDE) 29 MMOL/L (24-34); GFR AFRICAN AMERICAN 32 ML/MIN (>=60); GFR NON AFRICAN AMERICAN 27 ML/MIN (>=60); POTASSIUM, SERUM 3.8 MMOL/L (3.5-5.3); SODIUM, SERUM 141 MMOL/L (135-148)
[2017-06-24 04:56] LABS: GLUCOSE, SERUM 93 MG/DL (60-99)
[2017-06-25 05:27] LABS: ALBUMIN 2.5 G/DL (3.5-5.0); BASOPHILS 0.2 %; BASOPHILS ABSOLUTE 0.02 10/3/uL (0.0-0.16); BUN (BLOOD UREA NITROGEN) 32 MG/DL (6-23); CALCIUM, SERUM 8.6 MG/DL (8.5-10.4); CHLORIDE, SERUM 105 MMOL/L (96-112); CO2 (CARBON DIOXIDE) 29 MMOL/L (24-34); CREATININE 2.04 MG/DL (0.55-1.02); EOSINOPHILS 0.4 %; EOSINOPHILS ABSOLUTE 0.04 10/3/uL (0.0-0.53); GFR AFRICAN AMERICAN 31 ML/MIN (>=60); GFR NON AFRICAN AMERICAN 27 ML/MIN (>=60); GLUCOSE, SERUM 90 MG/DL (60-99); HEMATOCRIT 24.6 % (36.0-48.0); HEMOGLOBIN 7.6 g/dL (12.0-16.0); IMMATURE GRANULOCYTES 1.1 %; LYMPHOCYTES 13.1 %; LYMPHOCYTES ABSOLUTE 1.18 10/3/uL (0.67-4.30); MEAN CORPUS HGB CONC 30.9 g/dL (32.0-36.0); MEAN CORPUSCULAR HEMOGLOB 27.5 pg (26.0-34.0); MEAN CORPUSCULAR VOLUME 89.1 fL (80-100); MONOCYTES ABSOLUTE 0.81 10/3/uL (0.21-1.20); NEUTROPHILS 76.2 %; NEUTROPHILS ABSOLUTE 6.87 10/3/uL (2.02-8.40); PHOSPHORUS, SERUM 3.3 MG/DL (2.5-4.5); PLATELET COUNT 299 10/3/uL (150-400); POTASSIUM, SERUM 3.9 MMOL/L (3.5-5.3); RBC DISTRIBUTION WIDTH 15.2 % (12.0-16.0); RED CELL COUNT 2.76 10/6/uL (4.0-5.6); SODIUM, SERUM 142 MMOL/L (135-148)
[2017-06-25 05:28] LABS: MANUAL DIFF NO %
[2017-06-25 05:36] LABS: INTERNATIONAL NORMAL RATI 1.9 UNITS (-); PROTIME (NOT ORD) 21.6 SEC (12.0-14.5)
[2017-06-25] MEDS ORDERED: MONOKET PO (11:59)
[2017-06-25] MEDS ORDERED: COREG12 PO (12:00)
[2017-06-25] MEDS ORDERED: NORV5 PO (12:00)
== END 2017-06-25 16:47 | disposition home health service (06) | DRG 871 ==
LOC: ER 17:59 → 5SO 23:56
PROVIDERS: Internal Medicine; Internal Medicine Infectious Disease; Internal Medicine Pulmonary Disease; Nurse Practitioner; Registered Nurse; Specialist
PROC: 0T9130Z Drainage of Left Kidney with Drainage Device, Percutaneous Approach (ICD-10-PCS; principal; 2017-06-16)
PROC: 0T9130Z Drainage of Left Kidney with Drainage Device, Percutaneous Approach (ICD-10-PCS; 2017-06-18)
PROC: 0W9F30Z Drainage of Abdominal Wall with Drainage Device, Percutaneous Approach (ICD-10-PCS; 2017-06-22)
PROC: 02HV33Z Insertion of Infusion Device into Superior Vena Cava, Percutaneous Approach (ICD-10-PCS; 2017-06-22)
DX: A41.9 Sepsis, unspecified organism (principal); K65.1 Peritoneal abscess; N17.9 Acute kidney failure, unspecified; N39.0 Urinary tract infection, site not specified; Z94.83 Pancreas transplant status; Z94.0 Kidney transplant status; N18.9 Chronic kidney disease, unspecified; I10 Essential (primary) hypertension; E86.0 Dehydration; Z95.2 Presence of prosthetic heart valve; E78.5 Hyperlipidemia, unspecified; E87.70 Fluid overload, unspecified; Z79.899 Other long term (current) drug therapy; Z79.01 Long term (current) use of anticoagulants; Z88.1 Allergy status to other antibiotic agents; Z87.440 Personal history of urinary (tract) infections
CPT/HCPCS: 10030; 36415; 36569; 49083; 49418; 49424; 71010; 71020; 74176; 76080; 76775; 76830; 76856; 80048; 80053; 80069; 81001; 82962; 83735; 84145; 85025; 85027; 85576; 85610; 85730; 86850; 86900; 86901; 86920; 87040; 87070; 87075; 87077; 87086; 87186; 87205; 93005; 96374; 99152; 99285; A9270-GY; C1729; C1751; C1769; J0360; J2175; J2250; J2405; J2543; J2550; J3010; J3475; J7502; P9059; Q9967